=== PATIENT | female | born 1940 | race Caucasian/White ===

== ENCOUNTER → 2023-02-10 | Outpatient (RCR) | payer OTHER | LOC: M PT 02-01 09:59 | PROVIDERS: ATTEND Nurse Practitioner Family | DX: I89.0 Lymphedema, not elsewhere classified (principal) ==

== ENCOUNTER 2023-03-10 09:03 | Outpatient (RCR) | payer OTHER | END 2023-03-12 | LOC: M PT 09:03 | PROVIDERS: ATTEND Nurse Practitioner Family | DX: I89.0 Lymphedema, not elsewhere classified (principal) ==

== ENCOUNTER 2023-03-18 10:06 | Outpatient (RCR) | payer OTHER | END 2023-04-12 | LOC: M PT 10:06 | PROVIDERS: ATTEND Nurse Practitioner Family | DX: I89.0 Lymphedema, not elsewhere classified (principal) ==

== ENCOUNTER 2023-04-29 09:23 | Outpatient (RCR) | payer OTHER | END 2023-05-13 | LOC: M PT 09:23 | PROVIDERS: ATTEND Nurse Practitioner Family | DX: I89.0 Lymphedema, not elsewhere classified (principal) ==

== ENCOUNTER 2023-10-28 09:53 | Outpatient (RCR) | payer OTHER | END 2023-11-11 | LOC: M PT 09:53 | PROVIDERS: ATTEND Nurse Practitioner Family | DX: I89.0 Lymphedema, not elsewhere classified (principal) ==

== ENCOUNTER 2024-11-13 11:45 | Outpatient (RCR) | payer OTHER | END 2024-12-11 | LOC: M PT 11:45 | PROVIDERS: ATTEND Nurse Practitioner Family | DX: I89.0 Lymphedema, not elsewhere classified (principal) ==

== ENCOUNTER 2025-05-24 11:29 | Outpatient (RCR) | payer OTHER | END 2025-06-12 | LOC: M PT 11:29 | PROVIDERS: ATTEND Nurse Practitioner Family | DX: I89.0 Lymphedema, not elsewhere classified (principal) ==